=== PATIENT | male | born 1940 | race Caucasian/White ===

== ENCOUNTER 2017-06-09 18:44 | Inpatient (IN) | payer OTHER, MEDICARE ==
[~2017-06-09] VITALS: Ht 162.6 cm; Wt 53.5 kg
[~2017-06-09 18:44] MED LIST: DUONI INH; LEVO750T33 PO; NEBUMIS6 INH; PRED10PA PO
[2017-06-09 18:53] VITALS: BP 124/76; PULSE 102; RESP 36; TEMP 97.8; O2SAT 88
[2017-06-09 19:06] VITALS: BP 111/63; PULSE 88; RESP 26; O2SAT 94
[2017-06-09] MEDS ORDERED: IPRASOL INH (19:14)
--- NOTE | 2017-06-09 19:16 | PD ---
HPI Chief Complaint: Respiratory Symptoms Time Seen by Provider: 19:06 Travel History International Travel<30 days: No Contact w/Intl Traveler<30days: No Traveled to known affect area: No History of Present Illness HPI pt is 76 yr old male with history of COPD has home nebs not working to improve 3 days of worsening cough and congestion . he has tightness and cough and wheeze , denies CP pressure no vomit no diaphoresis , no signs of cardiac imvolvement , never had CHF , nor CAD by his report. neice is bedside, Pt is desaturating on room air to 83% Has noticeable cough and increased RR. His home treatments are not alleviating Resp distress he has not seen another MD for this illness exacerbations PFSH Past Medical History Arthritis: No Anxiety: Yes (loud noises from PTSD) Cancer: No Cardiovascular Problems: No COPD: Yes Diminished Hearing: No Endocrine: No Genitourinary: No Immune Disorder: No Musculoskeletal: No Neurologic: No Psychiatric: Yes Reproductive: No Respiratory: Yes Immunizations Current: Yes Pneumonia: Yes Past Surgical History Abdominal Surgery: No Cardiac Surgery: No Ear Surgery: No Endocrine Surgery: No Eye Surgery: No Genitourinary Surgery: No Gynecologic Surgery: No Oral Surgery: Yes Thoracic Surgery: No Social History Alcohol Use: Yes (OCCASSIONALLY) Tobacco Use: No Substance Use: No Allergies-Medications (Allergen,Severity, Reaction): Coded Allergies: meperidine (Unverified Allergy, Severe, 06/09/17) morphine (Unverified Allergy, Severe, 06/09/17) Reported Meds & Prescriptions Reported Meds & Active Scripts Active Reported Duoneb (Ipratropium-Albuterol Neb) 0.5-2.5 Mg/3 Ml Neb 1 Nebule INH Q6HR NEB Review of Systems HENT: No: Headaches, Sore Throat Cardiovascular: No: Chest Pain or Discomfort, Tachycardia Respiratory: Positive: Cough, Shortness of Breath, Wheezing Physical Exam Narrative GENERAL: no appraent resp distress but has obvious cough and increased RR SKIN: Warm and dry. HEAD: Atraumatic. Normocephalic. EYES: Pupils equal and round. No scleral icterus. No injection or drainage. ENT: No nasal bleeding or discharge. Mucous membranes pink and moist. NECK: Trachea midline. No JVD. CARDIOVASCULAR: Regular rhythm. RESPIRATORY: Diffuse wheeze in all cortes . moving air but diffuse decrease BS GASTROINTESTINAL: Abdomen soft, non-tender, nondistended. Hepatic and splenic margins not palpable. MUSCULOSKELETAL: Extremities without clubbing, cyanosis, or edema. No obvious deformities. NEUROLOGICAL: Awake and alert. No obvious cranial nerve deficits. Motor grossly within normal limits. Five out of 5 muscle strength in the arms and legs. Normal speech. PSYCHIATRIC: Appropriate mood and affect; insight and judgment normal. Data Data Last Documented VS Vital Signs Date Time Temp Pulse Resp B/P (MAP) Pulse Ox O2 Delivery O2 Flow Rate FiO2 06/09/17 19:06 88 26 111/63 (79) 94 Nasal Cannula 3.00 06/09/17 18:53 97.8 Orders Orders Electrocardiogram (06/09/17 19:10) Complete Blood Count With Diff (06/09/17 19:10) Comprehensive Metabolic Panel (06/09/17 19:10) Ckmb (Isoenzyme) Profile (06/09/17 19:10) Troponin I (06/09/17 19:10) Chest, Pa & Lat (06/09/17 19:10) Albuterol-Ipratropium Neb (Duoneb Neb) (06/09/17 19:15) Methylprednisolone So Succ Inj (Solumedr (06/09/17 19:30) Levofloxacin 750 Mg Premix Inj (Levaquin (06/09/17 19:30) Influenzae A/B Antigen (06/09/17 19:30) Methylprednisolone So Succ Inj (Solumedr (06/10/17 00:00) Budeson-Formot 160-4.5 Mcg Inh (Symbicor (06/10/17 09:00) Albuterol-Ipratropium Neb (Duoneb Neb) (06/10/17 08:00) Albuterol-Ipratropium Neb (Duoneb Neb) (06/09/17 21:30) Admit To Inpatient (06/09/17 ) Vital Signs (Adult) Q4H (06/09/17 21:28) Activity Oob Ad Gretel (06/09/17 21:28) Diet Regular Basic (06/10/17 Breakfast) Sodium Chloride 0.9% Flush (Ns Flush) (06/09/17 21:30) Sodium Chloride 0.9% Flush (Ns Flush) (06/10/17 09:00) Ondansetron Inj (Zofran Inj) (06/09/17 21:30) Comprehensive Metabolic Panel (06/10/17 06:00) Complete Blood Count With Diff (06/10/17 06:00) Enoxaparin Inj (Lovenox Inj) (06/10/17 09:00) Acetaminophen (Tylenol) (06/09/17 21:30) Acetamin-Hydrocod 325-5 Mg ([place] 5-325 (06/09/17 21:30) Acetamin-Hydrocod 325-10 Mg ([place] 10-32 (06/09/17 21:30) Docusate Sodium-Senna (Sachi-Colace) (06/10/17 09:00) Magnesium Hydroxide Liq (Milk Of Magnesi (06/09/17 21:30) Sennosides (Senokot) (06/09/17 21:30) Bisacodyl Supp (Dulcolax Supp) (06/09/17 21:30) Lactulose Liq (Lactulose Liq) (06/09/17 21:30) Inpatient Certification (06/09/17 ) Admit Order (Ed Use Only) (06/09/17 21:36) Arterial Blood Gas (Abg) (06/09/17 ) Labs Laboratory Tests Test 06/09/17 19:15 06/09/17 21:37 White Blood Count 16.8 TH/MM3 Red Blood Count 4.50 MIL/MM3 Hemoglobin 15.0 GM/DL Hematocrit 43.7 % Mean Corpuscular Volume 97.0 FL Mean Corpuscular Hemoglobin 33.3 PG Mean Corpuscular Hemoglobin Concent 34.4 % Red Cell Distribution Width 12.7 % Platelet Count 264 TH/MM3 Mean Platelet Volume 8.2 FL Neutrophils (%) (Auto) 79.9 % Lymphocytes (%) (Auto) 7.9 % Monocytes (%) (Auto) 11.7 % Eosinophils (%) (Auto) 0.3 % Basophils (%) (Auto) 0.2 % Neutrophils # (Auto) 13.4 TH/MM3 Lymphocytes # (Auto) 1.3 TH/MM3 Monocytes # (Auto) 2.0 TH/MM3 Eosinophils # (Auto) 0.1 TH/MM3 Basophils # (Auto) 0.0 TH/MM3 CBC Comment DIFF FINAL Differential Comment Blood Urea Nitrogen 16 MG/DL Creatinine 0.83 MG/DL Random Glucose 104 MG/DL Total Protein 8.2 GM/DL Albumin 3.4 GM/DL Calcium Level 9.4 MG/DL Alkaline Phosphatase 70 U/L Aspartate Amino Transf (AST/SGOT) 18 U/L Alanine Aminotransferase (ALT/SGPT) 17 U/L Total Bilirubin 0.8 MG/DL Sodium Level 136 MEQ/L Potassium Level 4.3 MEQ/L Chloride Level 99 MEQ/L Carbon Dioxide Level 29.0 MEQ/L Anion Gap 8 MEQ/L Estimat Glomerular Filtration Rate 91 ML/MIN Total Creatine Kinase 83 U/L Troponin I LESS THAN 0.02 NG/ML Blood Gas Puncture Site RT RADIAL Blood Gas Patient Temperature 98.6 Blood Gas HCO3 28 mmol/L Blood Gas Base Excess 3.3 mmol/L Blood Gas Oxygen Saturation 93 % Arterial Blood pH 7.41 Arterial Blood Partial Pressure CO2 45 mmHg Arterial Blood Partial Pressure O2 75 mmHG Arterial Blood Oxygen Content 19.2 Vol % Arterial Blood Carboxyhemoglobin 1.9 % Arterial Blood Methemoglobin 0.5 % Blood Gas Hemoglobin 14.7 G/DL Blood Gas Liter Flow 2 L/M MDM Medical Decision Making Medical Screen Exam Complete: Yes Emergency Medical Condition: Yes Medical Record Reviewed: Yes Differential Diagnosis COPD exacerbation vs CAD ischemic , PNA bronchitis viral Pneumothorax other Narrative Course COPD exacerbation with mild improvement after ED treatment needs inpt stay until the solumedrol kick in pt holding saturation now have Nebs and steroids and levaquin and admitted Diagnosis Primary Impression: COPD (chronic obstructive pulmonary disease) Qualified Codes: J44.9 - Chronic obstructive pulmonary disease, unspecified Additional Impression: Hypoxia Admitting Information Admitting Physician Requests: Observation Roberto Medina MD Jun 09, 2017 19:16
[2017-06-09] MEDS: RESP: ALBUTEROL 2.5 MG/IPRATROPIUM 0.5 MG NEB (SCH) INH (19:22)
[2017-06-09] MEDS ORDERED: LEVOFLOXACIN 750 MG PREMIX INJ 150 ML IV SCH (19:30)
[2017-06-09] MEDS ORDERED: methylPREDNISolone SOD SUCC 125 MG/2 ML VIAL IV PUSH ONE (19:30)
[2017-06-09 19:42] LABS: AUTOMATED NEUTROPHIL # 13.4 TH/MM3 (1.8-7.7); BASOPHIL % 0.2 % (0.0-2.0); EOSINOPHIL # 0.1 TH/MM3 (0-0.4); EOSINOPHIL % 0.3 % (0.0-4.0); HEMATOCRIT 43.7 % (39.0-51.0); LYMPH % 7.9 % (9.0-44.0); LYMPHOCYTE # 1.3 TH/MM3 (1.0-4.8); MEAN CORPUSCULAR HEMOGLOBIN 33.3 PG (27.0-34.0); MEAN CORPUSCULAR HGB CONC 34.4 % (32.0-36.0); MEAN PLATELET VOLUME 8.2 FL (7.0-11.0); MONO % 11.7 % (0.0-8.0); NEUT % 79.9 % (16.0-70.0); PLATELET COUNT 264 TH/MM3 (150-450); RED CELL DISTRIBUTION WIDTH 12.7 % (11.6-17.2); WHITE BLOOD COUNT 16.8 TH/MM3 (4.0-11.0)
[2017-06-09 19:53] LABS: ALBUMIN 3.4 GM/DL (3.4-5.0); ALT (GPT) 17 U/L (12-78); AST (GOT) 18 U/L (15-37); BLOOD UREA NITROGEN 16 MG/DL (7-18); CALCIUM 9.4 MG/DL (8.5-10.1); CHLORIDE 99 MEQ/L (98-107); CREATININE 0.83 MG/DL (0.60-1.30); GLOMERULAR FILTRATION RATE 91 ML/MIN (>89); GLUCOSE,RANDOM 104 MG/DL (74-106); SODIUM (NA) 136 MEQ/L (136-145)
[2017-06-09 19:57] LABS: ALKALINE PHOSPHATASE 70 U/L (45-117); TOTAL BILIRUBIN ADULT 0.8 MG/DL (0.2-1.0); TOTAL PROTEIN 8.2 GM/DL (6.4-8.2); TROPONIN I LESS THAN 0.02 NG/ML (0.02-0.05)
--- NOTE | 2017-06-09 20:09 | RADRPT ---
EXAM DATE/TIME: 06/09/2017 19:45 [place] COMPARISON: No previous studies available for comparison. INDICATIONS : Shortness of breath for 1 week MEDICAL HISTORY : None. SURGICAL HISTORY : None. ENCOUNTER: Initial ACUITY: 1 week PAIN SCORE: 0/10 LOCATION: Bilateral chest FINDINGS: PA and lateral views of the chest demonstrate the lungs to be symmetrically aerated without evidence of mass, infiltrate or effusion. Emphysema with hyperinflation. Peribronchial thickening present. The cardiomediastinal contours are unremarkable. Osseous structures are intact. CONCLUSION: 1. Mild hyperinflation. Peribronchial thickening. No focal consolidation. Underlying emphysema. Ivan Tucker MD on June 09, 2017 at 20:05 Board Certified Radiologist. This report was verified electronically.
[2017-06-09] MEDS ORDERED: ACETAMINOPHEN/HYDROcodone 325 MG/5 MG TAB PO PRN (21:30)
[2017-06-09] MEDS ORDERED: ACETAMINOPHEN/HYDROcodone 325 MG/10 MG TAB PO PRN (21:30)
[2017-06-09] MEDS ORDERED: ONDANSETRON HCL 4 MG/2 ML VIAL IVP PRN (21:30)
[2017-06-09] MEDS ORDERED: MAGNESIUM HYDROXIDE SUSP 30 ML CUP PO PRN (21:30)
[2017-06-09] MEDS ORDERED: SODIUM CHLORIDE 0.9% FLUSH 10 ML FLUSH IV FLUSH PRN (21:30)
[2017-06-09] MEDS ORDERED: LACTULOSE SYRUP 20 GM/30 ML CUP PO PRN (21:30)
[2017-06-09] MEDS ORDERED: ACETAMINOPHEN 325 MG TAB PO PRN (21:30)
[2017-06-09] MEDS ORDERED: BISACODYL 10 MG SUPP RECTAL PRN (21:30)
[2017-06-09] MEDS ORDERED: SENNOSIDES 8.6 MG TAB PO PRN (21:30)
--- NOTE | 2017-06-09 21:32 | HHI.HP ---
[facility] Primary Care Physician [place] Admission Diagnosis Diagnoses: (1) COPD (chronic obstructive pulmonary disease) Diagnosis: Principal (2) Hypoxia Diagnosis: Principal (3) Leukocytosis Diagnosis: Principal Travel History International Travel<30 Days: No Contact w/Intl Traveler <30 Da: No Traveled to Known Affected Are: No History of Present Illness This is a 76-year-old male with PMH of COPD who presents ER with complaints of cough and wheezing x3 days. Has been using home nebulizer w/ minimal improvement. Denies fever, chills or sick contacts. Reports SOB/wheezing severe, worse w/ exertion/movement, associated w/ non-productive cough. On arrival, BP 124/76, HR 102, O2 sat 88% on RA, Afebrile. WBC 16.8. Chemistry essentially unremarkable. Troponin negative. CXR with mild hyperinflation and peribronchial thickening. S/p Solu-Medrol and DuoNeb in ER w/ minimal improvement, still w/ persistent SOB/wheezing and significant dyspnea w/ speech. Review of Systems Except as stated in HPI: all other systems reviewed are Neg ROS: 14 point review of systems otherwise negative. Past Family Social History Past Medical History PMH: COPD Past Surgical History PAST SURGICAL HISTORY: Oral Surgery Allergies: Coded Allergies: meperidine (Unverified Allergy, Severe, 06/09/17) morphine (Unverified Allergy, Severe, 06/09/17) Family History PAST FAMILY HISTORY: Reviewed. No h/o DM or CAD Social History PAST SOCIAL HISTORY: Occasional alcohol. Negative for tobacco or drugs. Physical Exam Vital Signs Vital Signs Date Time Temp Pulse Resp B/P (MAP) Pulse Ox O2 Delivery O2 Flow Rate FiO2 06/09/17 19:06 88 26 111/63 (79) 94 Nasal Cannula 3.00 06/09/17 18:56 (92) 06/09/17 18:53 97.8 102 36 124/76 (92) 88 Room Air Physical Exam PE: GENERAL: Very pleasant elderly thin white male in no acute distress. Dyspnea with speech. Audible wheezing. HEENT: PERRLA, EOMI. No scleral icterus or conjunctival pallor. No lid lag or facial droop. CARDIOVASCULAR: Regular rate and rhythm. No obvious murmurs to auscultation. No chest tenderness to palpation. RESPIRATORY: No obvious rhonchi. Significant wheezing. Decreased air movement bilaterally. GASTROINTESTINAL: Abdomen soft, non-tender, nondistended. BS normal. MUSCULOSKELETAL: Extremities without clubbing, cyanosis, or edema. No obvious deformities. NEUROLOGICAL: Awake, alert and oriented x4. No focal neurologic deficits. Moving both upper and lower extremities spontaneously. Laboratory Laboratory Tests Test 06/09/17 19:15 White Blood Count 16.8 Red Blood Count 4.50 Hemoglobin 15.0 Hematocrit 43.7 Mean Corpuscular Volume 97.0 Mean Corpuscular Hemoglobin 33.3 Mean Corpuscular Hemoglobin Concent 34.4 Red Cell Distribution Width 12.7 Platelet Count 264 Mean Platelet Volume 8.2 Neutrophils (%) (Auto) 79.9 Lymphocytes (%) (Auto) 7.9 Monocytes (%) (Auto) 11.7 Eosinophils (%) (Auto) 0.3 Basophils (%) (Auto) 0.2 Neutrophils # (Auto) 13.4 Lymphocytes # (Auto) 1.3 Monocytes # (Auto) 2.0 Eosinophils # (Auto) 0.1 Basophils # (Auto) 0.0 CBC Comment DIFF FINAL Differential Comment Blood Urea Nitrogen 16 Creatinine 0.83 Random Glucose 104 Total Protein 8.2 Albumin 3.4 Calcium Level 9.4 Alkaline Phosphatase 70 Aspartate Amino Transf (AST/SGOT) 18 Alanine Aminotransferase (ALT/SGPT) 17 Total Bilirubin 0.8 Sodium Level 136 Potassium Level 4.3 Chloride Level 99 Carbon Dioxide Level 29.0 Anion Gap 8 Estimat Glomerular Filtration Rate 91 Total Creatine Kinase 83 Troponin I LESS THAN 0.02 Result Diagram: 06/09/17191406/09/171914 Caprini VTE Risk Assessment Caprini VTE Risk Assessment: No/Low Risk (score <= 1) Caprini Risk Assessment Model Point Value = 1 Point Value = 2 Point Value = 3 Point Value = 5 Age 41-60 Minor surgery BMI > 25 kg/m2 Swollen legs Varicose veins or History of unexplained or recurrent spontaneous Oral contraceptives or hormone replacement Sepsis (< 1 month) Serious lung disease, including pneumonia (< 1 month) Abnormal pulmonary function Acute myocardial infarction Congestive heart failure (< 1 month) History of inflammatory bowel disease Medical patient at bed rest Age 61-74 Arthroscopic surgery Major open surgery (> 45 min) Laparoscopic surgery (> 45 min) Malignancy Confined to bed (> 72 hours) Immobilizing plaster cast Central venous access Age >= 75 History of VTE Family history of VTE Factor V Leiden Prothrombin [id number] Lupus anticoagulant Anticardiolipin antibodies Elevated serum homocysteine Heparin-induced thrombocytopenia Other congenital or acquired thrombophilia Stroke (< 1 month) Elective arthroplasty Hip, pelvis, or leg fracture Acute spinal cord injury (< 1 month) Prophylaxis Regimen Total Risk Factor Score Risk Level Prophylaxis Regimen 0-1 Low Early ambulation 2 Moderate Order ONE of the following: *Sequential Compression Device (SCD) *Heparin 5000 units SQ BID 3-4 Higher Order ONE of the following medications: *Heparin 5000 units SQ TID *Enoxaparin/Lovenox 40 mg SQ daily (WT < 150 kg, CrCl > 30 mL/min) *Enoxaparin/Lovenox 30 mg SQ daily (WT < 150 kg, CrCl > 10-29 mL/min) *Enoxaparin/Lovenox 30 mg SQ BID (WT < 150 kg, CrCl > 30 mL/min) AND/OR *Sequential Compression Device (SCD) 5 or more Highest Order ONE of the following medications: *Heparin 5000 units SQ TID (Preferred with Epidurals) *Enoxaparin/Lovenox 40 mg SQ daily (WT < 150 kg, CrCl > 30 mL/min) *Enoxaparin/Lovenox 30 mg SQ daily (WT < 150 kg, CrCl > 10-29 mL/min) *Enoxaparin/Lovenox 30 mg SQ BID (WT < 150 kg, CrCl > 30 mL/min) AND *Sequential Compression Device (SCD) Assessment and Plan Problem List: (1) COPD (chronic obstructive pulmonary disease) ICD Code: J44.9 - Chronic obstructive pulmonary disease, unspecified Status: Acute (2) Hypoxia ICD Code: R09.02 - Hypoxemia (3) Leukocytosis ICD Code: D72.829 - Elevated white blood cell count, unspecified Assessment and Plan A/P: 1. COPD: Chronic Respiratory Failure w/ Acute Exacerbation. Severe. Significant SOB/wheezing and dyspnea w/ speech despite Solu-Medrol and DuoNeb. CXR w/ hyperinflation, images reviewed by me. Continue Solu-Medrol, DuoNeb, Symbicort, Mucinex. Check ABG to eval for CO2 retention and possible need for BIPAP. 2. Hypoxia: O2 sat 88% on RA, currently on 3L NC w/ O2 sat 94%. Monitor O2 closely, check ABG as above for need to supplement further. 3. Leukocytosis: WBC 16 w/ elevated neutrophil count, afebrile. In light of severe COPD will continue w/ Levaquin IV for empiric treatment of atypical PNA. Recheck labs in am. 4. DVT Prophylaxis: Lovenox sq 5. Social work for d/c planning as needed. 6. Case discussed w/ ER physician at length, labs/records/imaging reviewed by me. Physician Certification 2 Midnight Certification Type: Admission for Inpatient Services Order for Inpatient Services The services are ordered in accordance with Medicare regulations or non- Medicare payer requirements, as applicable. In the case of services not specified as inpatient-only, they are appropriately provided as inpatient services in accordance with the 2-midnight benchmark. Estimated LOS (days): 2 days is the estimated time the patient will need to remain in the hospital, assuming treatment plan goals are met and no additional complications. Post-Hospital Plan: Not yet determined Heena Bellamy MD Jun 09, 2017 21:32
[2017-06-09 22:00] VITALS: BP 107/63; PULSE 87; RESP 18; O2SAT 96
[2017-06-09 22:52] VITALS: BP 111/75; PULSE 78; RESP 18; O2SAT 96
[2017-06-09] MEDS: methylPREDNISolone SOD SUCC 40 MG/1 ML VIAL IV PUSH SCH (23:12)
[2017-06-09] MEDS: RESP: ALBUTEROL 2.5 MG/IPRATROPIUM 0.5 MG NEB (PRN) NEB (23:40)
[2017-06-09 23:43] VITALS: O2SAT 93
[2017-06-10] VITALS (9 sets, daily range): BP systolic 100–122; BP diastolic 58–70; PULSE 85–97; RESP 18; TEMP 97.4–97.8; O2SAT 92–94
[2017-06-10] MEDS: methylPREDNISolone SOD SUCC 40 MG/1 ML VIAL IV PUSH SCH ×3 (05:39→21:41)
[2017-06-10 06:05] LABS: AUTOMATED NEUTROPHIL # 10.2 TH/MM3 (1.8-7.7); HEMATOCRIT 42.1 % (39.0-51.0); HEMOGLOBIN 14.4 GM/DL (13.0-17.0); LYMPH % 4.5 % (9.0-44.0); LYMPHOCYTE # 0.5 TH/MM3 (1.0-4.8); MEAN CELL VOLUME 96.8 FL (80.0-100.0); MEAN CORPUSCULAR HEMOGLOBIN 33.1 PG (27.0-34.0); MEAN CORPUSCULAR HGB CONC 34.2 % (32.0-36.0); MEAN PLATELET VOLUME 8.2 FL (7.0-11.0); MONO % 1.9 % (0.0-8.0); MONOCYTE # 0.2 TH/MM3 (0-0.9); NEUT % 93.6 % (16.0-70.0); PLATELET COUNT 261 TH/MM3 (150-450); RED BLOOD COUNT 4.35 MIL/MM3 (4.50-5.90); RED CELL DISTRIBUTION WIDTH 12.8 % (11.6-17.2); WHITE BLOOD COUNT 10.9 TH/MM3 (4.0-11.0)
[2017-06-10 06:23] LABS: ALT (GPT) 20 U/L (12-78); AST (GOT) 17 U/L (15-37); BICARBONATE 31.3 MEQ/L (21.0-32.0); BLOOD UREA NITROGEN 22 MG/DL (7-18); CALCIUM 9.5 MG/DL (8.5-10.1); CHLORIDE 99 MEQ/L (98-107); CREATININE 0.84 MG/DL (0.60-1.30); GLOMERULAR FILTRATION RATE 89 ML/MIN (>89); GLUCOSE,RANDOM 195 MG/DL (74-106); SODIUM (NA) 137 MEQ/L (136-145)
[2017-06-10 06:27] LABS: ALKALINE PHOSPHATASE 72 U/L (45-117); TOTAL BILIRUBIN ADULT 0.5 MG/DL (0.2-1.0); TOTAL PROTEIN 7.6 GM/DL (6.4-8.2)
[2017-06-10] MEDS: RESP: ALBUTEROL 2.5 MG/IPRATROPIUM 0.5 MG NEB (SCH) NEB ×4 (07:41→19:13)
[2017-06-10] MEDS: DOCUSATE SODIUM 50 MG/SENNA 8.6 MG TAB PO SCH ×2 (09:41→21:41)
[2017-06-10] MEDS: SODIUM CHLORIDE 0.9% FLUSH 10 ML FLUSH IV FLUSH SCH ×2 (09:41→21:41)
[2017-06-10] MEDS: ENOXAPARIN SODIUM 40 MG/0.4 ML SYRINGE SQ SCH (09:41)
[2017-06-10] MEDS: RESP: ALBUTEROL 2.5 MG/IPRATROPIUM 0.5 MG NEB (PRN) NEB ×2 (09:50→23:57)
[2017-06-10] MEDS: BUDESONIDE-FORMOTEROL 160/4.5 MCG INHALER INH SCH ×2 (11:45→21:40)
--- NOTE | 2017-06-10 12:09 | HHI.PR ---
Subjective Remarks Follow-up COPD exacerbation respiratory failure 06/10/17-patient seen and examined, reports improvement of shortness of breath and denies any chest pain. Currently from the Objective Vitals Vital Signs Date Time Temp Pulse Resp B/P (MAP) Pulse Ox O2 Delivery O2 Flow Rate FiO2 06/10/17 08:00 97.5 91 18 118/58 (78) 94 06/10/17 07:42 93 Nasal Cannula 3.00 06/10/17 04:00 97.4 92 18 121/64 (83) 94 06/10/17 00:00 97.6 85 18 100/62 (75) 93 06/09/17 23:43 93 Nasal Cannula 2.00 06/09/17 22:52 06/09/17 22:52 78 18 111/75 (87) 96 Nasal Cannula 2.00 06/09/17 22:00 87 18 107/63 (78) 96 Nasal Cannula 2.00 06/09/17 19:06 88 26 111/63 (79) 94 Nasal Cannula 3.00 06/09/17 18:56 (92) 06/09/17 18:53 97.8 102 36 124/76 (92) 88 Room Air I/O 06/09/17 06/09/17 06/09/17 06/10/17 06/10/17 06/10/17 07:00 15:00 23:00 07:00 15:00 23:00 Intake Total 150 ml 360 ml Balance 150 ml 360 ml Intake Oral 360 ml IV Total 150 ml # Voids 0 Result Diagram: 06/10/1752606/10/17526 Imaging Last Impressions Chest X-Ray 06/09/171909 Signed Impressions: Service Date/Time: Friday, June 09, 2017 19:45 - CONCLUSION: 1. Mild hyperinflation. Peribronchial thickening. No focal consolidation. Underlying emphysema. Ivan Tucker MD Objective Remarks GENERAL: NAD SKIN: Warm and dry. HEAD: Normocephalic. EYES: No scleral icterus. No injection or drainage. NECK: Supple, trachea midline. No JVD or lymphadenopathy. CARDIOVASCULAR: Regular rate and rhythm without murmurs, gallops, or rubs. RESPIRATORY: Breath sounds decrease bilaterally. No accessory muscle use.+exp wheezings GASTROINTESTINAL: Abdomen soft, non-tender, nondistended. MUSCULOSKELETAL: No cyanosis, or edema. BACK: Nontender without obvious deformity. No CVA tenderness. A/P Problem List: (1) COPD (chronic obstructive pulmonary disease) ICD Code: J44.9 - Chronic obstructive pulmonary disease, unspecified Status: Acute (2) Hypoxia ICD Code: R09.02 - Hypoxemia (3) Leukocytosis ICD Code: D72.829 - Elevated white blood cell count, unspecified Assessment and Plan 76 yrs old man with 1. COPD: Chronic Respiratory Failure w/ Acute Exacerbation. CXR w/ hyperinflation. Decrease Solu-Medrol to 40mg IV Q8H,Continue DuoNeb, Symbicort, Levaquin and Mucinex.add Spiriva 2. Hypoxia: currently on 3L NC . Monitor O2 closely, 3. Leukocytosis: In light of severe COPD will continue w/ Levaquin IV for empiric treatment of atypical PNA. Recheck labs in am. 4. DVT Prophylaxis: Lovenox sq Josr De La Cruz MD Jun 10, 2017 12:09
--- NOTE | 2017-06-10 14:37 | EKG ---
Date Performed: 06/09/2017 Time Performed: 20:07:44 PTAGE: 76 years EKG: ATRIAL FLUTTER/TACHYCARDIA RIGHT BUNDLE BRANCH BLOCK LEFT POSTERIOR FASCICULAR BLOCK ABNORM AL ECG Since PREVIOUS TRACING , no significant change noted PREVIOUS TRACIN11/02/2015 14.39.58 DOCTOR: Ed Marmolejo Interpretating Date/Time 06/10/2017 14:36:33
[2017-06-10] MEDS: LEVOFLOXACIN 750 MG PREMIX INJ 150 ML IV SCH (23:45)
[2017-06-11] VITALS (8 sets, daily range): BP systolic 92–121; BP diastolic 57–70; PULSE 83–100; RESP 18–19; TEMP 97.2–98; O2SAT 92–98
[2017-06-11] MEDS: RESP: ALBUTEROL 2.5 MG/IPRATROPIUM 0.5 MG NEB (PRN) NEB (04:12)
[2017-06-11] MEDS: methylPREDNISolone SOD SUCC 40 MG/1 ML VIAL IV PUSH SCH ×3 (04:42→19:36)
[2017-06-11] MEDS: DOCUSATE SODIUM 50 MG/SENNA 8.6 MG TAB PO SCH ×2 (09:00→19:36)
[2017-06-11] MEDS: RESP: ALBUTEROL 2.5 MG/IPRATROPIUM 0.5 MG NEB (SCH) NEB ×4 (09:24→20:51)
--- NOTE | 2017-06-11 10:21 | HHI.PR ---
Subjective Remarks Follow-up COPD exacerbation respiratory failure 06/10/17-patient seen and examined, reports improvement of shortness of breath and denies any chest pain. Currently from the 06/11/17-patient seen and examined,still short of breath with exp wheezing. Afebrile and denies any chest pain Objective Vitals Vital Signs Date Time Temp Pulse Resp B/P (MAP) Pulse Ox O2 Delivery O2 Flow Rate FiO2 06/11/17 09:25 Nasal Cannula 3.00 06/11/17 08:00 98.0 91 18 114/59 (77) 94 06/11/17 04:24 Nasal Cannula 3.00 06/11/17 04:00 97.5 84 18 115/58 (77) 92 06/11/17 00:00 Nasal Cannula 3.00 06/11/17 00:00 97.5 84 19 92/65 (74) 92 06/10/17 23:59 93 Nasal Cannula 3.00 06/10/17 21:15 Nasal Cannula 3.00 06/10/17 20:00 97.8 97 18 122/67 (85) 92 06/10/17 16:00 Nasal Cannula 3.00 06/10/17 16:00 97.5 95 18 111/70 (84) 92 06/10/17 15:09 92 Nasal Cannula 3.00 06/10/17 12:00 Nasal Cannula 3.00 06/10/17 12:00 97.6 87 18 111/67 (82) 92 I/O 06/10/17 06/10/17 06/10/17 06/11/17 06/11/17 06/11/17 07:00 15:00 23:00 07:00 15:00 23:00 Intake Total 360 ml 480 ml 430 ml Output Total 800 ml 300 ml Balance 360 ml -320 ml 130 ml Intake Oral 360 ml 480 ml 280 ml IV Total 150 ml Output Urine Total 800 ml 300 ml # Voids 0 Result Diagram: 06/10/1752606/10/17526 Imaging Last Impressions Chest X-Ray 06/09/171909 Signed Impressions: Service Date/Time: Friday, June 09, 2017 19:45 - CONCLUSION: 1. Mild hyperinflation. Peribronchial thickening. No focal consolidation. Underlying emphysema. Ivan Tucker MD Objective Remarks GENERAL: NAD SKIN: Warm and dry. HEAD: Normocephalic. EYES: No scleral icterus. No injection or drainage. NECK: Supple, trachea midline. No JVD or lymphadenopathy. CARDIOVASCULAR: Regular rate and rhythm without murmurs, gallops, or rubs. RESPIRATORY: Breath sounds decrease bilaterally. No accessory muscle use.+exp wheezings GASTROINTESTINAL: Abdomen soft, non-tender, nondistended. MUSCULOSKELETAL: No cyanosis, or edema. BACK: Nontender without obvious deformity. No CVA tenderness. A/P Problem List: (1) COPD (chronic obstructive pulmonary disease) ICD Code: J44.9 - Chronic obstructive pulmonary disease, unspecified Status: Acute (2) Hypoxia ICD Code: R09.02 - Hypoxemia (3) Leukocytosis ICD Code: D72.829 - Elevated white blood cell count, unspecified Assessment and Plan 76 yrs old man with 1. COPD: Chronic Respiratory Failure w/ Acute Exacerbation. CXR w/ hyperinflation. Continue Solu-Medrol 40mg IV Q8H, DuoNeb, Symbicort, Levaquin and Mucinex as well as Spiriva Maintain oxygen saturation above 92% Add Acapella, IS 2. Hypoxia: currently on 3L NC . Monitor O2 closely, 3. Leukocytosis: Resolved In light of severe COPD will continue w/ Levaquin IV for empiric treatment of atypical PNA. 4. DVT Prophylaxis: Lovenox sq Josr De La Cruz MD Jun 11, 2017 10:21
[2017-06-11] MEDS: ENOXAPARIN SODIUM 40 MG/0.4 ML SYRINGE SQ SCH (10:52)
[2017-06-11] MEDS: TIOTROPIUM BROMIDE 18 MCG INH INH SCH (10:52)
[2017-06-11] MEDS: BUDESONIDE-FORMOTEROL 160/4.5 MCG INHALER INH SCH ×2 (10:53→19:39)
[2017-06-11] MEDS: SODIUM CHLORIDE 0.9% FLUSH 10 ML FLUSH IV FLUSH SCH ×2 (12:40→19:41)
[2017-06-11] MEDS: LEVOFLOXACIN 750 MG PREMIX INJ 150 ML IV SCH (23:18)
[2017-06-12] MEDS: RESP: ALBUTEROL 2.5 MG/IPRATROPIUM 0.5 MG NEB (PRN) NEB ×2 (00:05→03:56)
[2017-06-12 04:00] VITALS: BP 117/59; PULSE 80; RESP 20; TEMP 97.4; O2SAT 93
[2017-06-12] MEDS: methylPREDNISolone SOD SUCC 40 MG/1 ML VIAL IV PUSH SCH ×3 (04:11→20:17)
[2017-06-12 08:12] VITALS: BP 113/64; PULSE 79; RESP 18; TEMP 97.3; O2SAT 96
[2017-06-12] MEDS: BUDESONIDE-FORMOTEROL 160/4.5 MCG INHALER INH SCH ×2 (09:00→20:19)
[2017-06-12 09:11] VITALS: O2SAT 93
[2017-06-12] MEDS: RESP: ALBUTEROL 2.5 MG/IPRATROPIUM 0.5 MG NEB (SCH) NEB ×4 (09:11→20:18)
--- NOTE | 2017-06-12 09:42 | HHI.PR ---
Subjective Remarks Follow-up COPD exacerbation respiratory failure 06/10/17-patient seen and examined, reports improvement of shortness of breath and denies any chest pain. Currently from the 06/11/17-patient seen and examined,still short of breath with exp wheezing. Afebrile and denies any chest pain 06/12/17-patient seen and examined, improving shortness of breath and denies any chest pain. Objective Vitals Vital Signs Date Time Temp Pulse Resp B/P (MAP) Pulse Ox O2 Delivery O2 Flow Rate FiO2 06/12/17 08:12 97.3 79 18 113/64 (80) 96 06/12/17 04:00 97.4 80 20 117/59 (78) 93 06/12/17 04:00 Nasal Cannula 3.00 06/11/17 23:14 97.6 84 18 100/62 (75) 98 06/11/17 20:53 96 Nasal Cannula 3.00 06/11/17 20:00 Nasal Cannula 3.00 06/11/17 19:33 97.7 88 18 111/70 (84) 96 06/11/17 16:00 97.2 83 18 111/61 (78) 95 06/11/17 16:00 Nasal Cannula 3.00 06/11/17 12:00 Nasal Cannula 3.00 06/11/17 12:00 97.4 100 18 121/57 (78) 94 I/O 06/11/17 06/11/17 06/11/17 06/12/17 06/12/17 06/12/17 07:00 15:00 23:00 07:00 15:00 23:00 Intake Total 430 ml 480 ml 300 ml Output Total 300 ml 800 ml 850 ml Balance 130 ml -320 ml -550 ml Intake Oral 280 ml 480 ml 200 ml IV Total 150 ml 100 ml Output Urine Total 300 ml 800 ml 850 ml # Bowel Movements 0 Result Diagram: 06/10/1752606/10/17526 Imaging Last Impressions Chest X-Ray 06/09/171909 Signed Impressions: Service Date/Time: Friday, June 09, 2017 19:45 - CONCLUSION: 1. Mild hyperinflation. Peribronchial thickening. No focal consolidation. Underlying emphysema. Ivan Tucker MD Objective Remarks GENERAL: NAD SKIN: Warm and dry. HEAD: Normocephalic. EYES: No scleral icterus. No injection or drainage. NECK: Supple, trachea midline. No JVD or lymphadenopathy. CARDIOVASCULAR: Regular rate and rhythm without murmurs, gallops, or rubs. RESPIRATORY: Breath sounds decrease bilaterally. No accessory muscle use.+exp wheezings GASTROINTESTINAL: Abdomen soft, non-tender, nondistended. MUSCULOSKELETAL: No cyanosis, or edema. BACK: Nontender without obvious deformity. No CVA tenderness. Procedures none A/P Problem List: (1) COPD (chronic obstructive pulmonary disease) ICD Code: J44.9 - Chronic obstructive pulmonary disease, unspecified Status: Acute (2) Hypoxia ICD Code: R09.02 - Hypoxemia (3) Leukocytosis ICD Code: D72.829 - Elevated white blood cell count, unspecified Assessment and Plan 76 yrs old man with 1. COPD: Chronic Respiratory Failure w/ Acute Exacerbation. CXR w/ hyperinflation. Continue Solu-Medrol 40mg IV Q8H, DuoNeb, Symbicort, Levaquin and Mucinex as well as Spiriva Maintain oxygen saturation above 92% Continue Acapella, IS 2. Hypoxia: currently on 3L NC . Monitor O2 closely, 3. Leukocytosis: Resolved In light of severe COPD will continue w/ Levaquin IV for empiric treatment of atypical PNA. 4. DVT Prophylaxis: Lovenox sq Josr De La Cruz MD Jun 12, 2017 09:42
[2017-06-12] MEDS: DOCUSATE SODIUM 50 MG/SENNA 8.6 MG TAB PO SCH ×2 (09:58→20:18)
[2017-06-12] MEDS: ENOXAPARIN SODIUM 40 MG/0.4 ML SYRINGE SQ SCH (09:59)
[2017-06-12] MEDS: TIOTROPIUM BROMIDE 18 MCG INH INH SCH (10:03)
[2017-06-12] MEDS: SODIUM CHLORIDE 0.9% FLUSH 10 ML FLUSH IV FLUSH SCH ×2 (10:04→20:17)
[2017-06-12 12:12] VITALS: BP 120/59; PULSE 87; RESP 18; TEMP 97.6; O2SAT 95
[2017-06-12 16:23] VITALS: BP 120/58; PULSE 87; RESP 18; TEMP 97.8; O2SAT 96
[2017-06-12 20:14] VITALS: BP 101/73; PULSE 89; RESP 21; TEMP 98; O2SAT 94
[2017-06-12] MEDS: LEVOFLOXACIN 750 MG PREMIX INJ 150 ML IV SCH (23:33)
[2017-06-13] VITALS: BP 130/61; PULSE 77; RESP 20; TEMP 97.6; O2SAT 95
[2017-06-13 04:00] VITALS: BP 113/76; PULSE 75; RESP 20; TEMP 97.4; O2SAT 95
[2017-06-13] MEDS: methylPREDNISolone SOD SUCC 40 MG/1 ML VIAL IV PUSH SCH (04:12)
[2017-06-13 07:22] LABS: BASOPHIL % 0.1 % (0.0-2.0); HEMATOCRIT 38.7 % (39.0-51.0); HEMOGLOBIN 13.3 GM/DL (13.0-17.0); LYMPH % 7.4 % (9.0-44.0); LYMPHOCYTE # 0.8 TH/MM3 (1.0-4.8); MEAN CELL VOLUME 96.4 FL (80.0-100.0); MEAN CORPUSCULAR HEMOGLOBIN 33.2 PG (27.0-34.0); MEAN CORPUSCULAR HGB CONC 34.5 % (32.0-36.0); MEAN PLATELET VOLUME 7.6 FL (7.0-11.0); MONO % 5.9 % (0.0-8.0); MONOCYTE # 0.6 TH/MM3 (0-0.9); NEUT % 86.6 % (16.0-70.0); PLATELET COUNT 343 TH/MM3 (150-450); RED BLOOD COUNT 4.01 MIL/MM3 (4.50-5.90); RED CELL DISTRIBUTION WIDTH 12.9 % (11.6-17.2); WHITE BLOOD COUNT 10.4 TH/MM3 (4.0-11.0)
[2017-06-13 07:40] VITALS: BP 117/65; PULSE 76; RESP 18; TEMP 97.7; O2SAT 95
[2017-06-13 07:45] LABS: BICARBONATE 30.6 MEQ/L (21.0-32.0); CREATININE 0.56 MG/DL (0.60-1.30)
[2017-06-13 07:57] VITALS: O2SAT 93
[2017-06-13] MEDS: RESP: ALBUTEROL 2.5 MG/IPRATROPIUM 0.5 MG NEB (SCH) NEB ×2 (07:57→11:50)
[2017-06-13] MEDS: SODIUM CHLORIDE 0.9% FLUSH 10 ML FLUSH IV FLUSH SCH (08:37)
[2017-06-13] MEDS: DOCUSATE SODIUM 50 MG/SENNA 8.6 MG TAB PO SCH (08:37)
[2017-06-13] MEDS: BUDESONIDE-FORMOTEROL 160/4.5 MCG INHALER INH SCH (08:37)
[2017-06-13] MEDS: TIOTROPIUM BROMIDE 18 MCG INH INH SCH (08:37)
[2017-06-13] MEDS: ENOXAPARIN SODIUM 40 MG/0.4 ML SYRINGE SQ SCH (08:37)
[2017-06-13 09:09] LABS: BANDS 7 % (0-6); LYMPHOCYTES 9 % (9-44); MONOCYTES 5 % (0-8); NEUTROPHIL # MANUAL DIFF 8.9 TH/MM3 (1.8-7.7); POLYS (SEG NEUTROPHILS) 79 % (16-70)
[2017-06-13] MEDS ORDERED: IPRA17I INH (10:13)
[2017-06-13] MEDS ORDERED: LEVA750T9 PO (10:13)
[2017-06-13] MEDS ORDERED: SPIRCAP INH (10:13)
[2017-06-13] MEDS ORDERED: PRED20 PO (10:13)
[2017-06-13] MEDS ORDERED: Budeson-Formot 160-4.5 Mcg Inh INH (10:13)
[2017-06-13] MEDS ORDERED: VENTAER INH (10:13)
[2017-06-13] MEDS ORDERED: OXYGENDME NAS.CANULA (10:14)
--- NOTE | 2017-06-13 10:16 | HHI.PR ---
Subjective Remarks Follow-up COPD exacerbation respiratory failure 06/10/17-patient seen and examined, reports improvement of shortness of breath and denies any chest pain. Currently from the 06/11/17-patient seen and examined,still short of breath with exp wheezing. Afebrile and denies any chest pain 06/12/17-patient seen and examined, improving shortness of breath and denies any chest pain. 06/13/17-patient seen and examined, reports significant improvement or shortness of breath and states he is ready for discharge home now. Objective Vitals Vital Signs Date Time Temp Pulse Resp B/P (MAP) Pulse Ox O2 Delivery O2 Flow Rate FiO2 06/13/17 08:30 Nasal Cannula 2.00 06/13/17 07:57 93 21 06/13/17 07:40 97.7 76 18 117/65 (82) 95 06/13/17 04:00 97.4 75 20 113/76 (88) 95 06/13/17 04:00 Nasal Cannula 2.00 06/13/17 00:00 Nasal Cannula 3.00 06/13/17 00:00 97.6 77 20 130/61 (84) 95 06/12/17 20:14 Nasal Cannula 3.00 06/12/17 20:14 98.0 89 21 101/73 (82) 94 06/12/17 16:23 97.8 87 18 120/58 (78) 96 06/12/17 12:12 97.6 87 18 120/59 (79) 95 I/O 06/12/17 06/12/17 06/12/17 06/13/17 06/13/17 06/13/17 06:59 14:59 22:59 06:59 14:59 22:59 Intake Total 300 ml 600 ml 870 ml Output Total 850 ml 600 ml 800 ml Balance -550 ml 0 ml 70 ml Intake Oral 200 ml 600 ml 720 ml IV Total 100 ml 150 ml Output Urine Total 850 ml 600 ml 800 ml # Bowel Movements 0 0 0 Result Diagram: 06/13/1703 06/13/17 0703 Imaging Last Impressions Chest X-Ray 06/09/17 1910 Signed Impressions: Service Date/Time: Friday, June 09, 2017 19:45 - CONCLUSION: 1. Mild hyperinflation. Peribronchial thickening. No focal consolidation. Underlying emphysema. Ivan Tucker MD Objective Remarks GENERAL: NAD SKIN: Warm and dry. HEAD: Normocephalic. EYES: No scleral icterus. No injection or drainage. NECK: Supple, trachea midline. No JVD or lymphadenopathy. CARDIOVASCULAR: Regular rate and rhythm without murmurs, gallops, or rubs. RESPIRATORY: Breath sounds decrease bilaterally. No accessory muscle use.+exp wheezings GASTROINTESTINAL: Abdomen soft, non-tender, nondistended. MUSCULOSKELETAL: No cyanosis, or edema. BACK: Nontender without obvious deformity. No CVA tenderness. Procedures none A/P Problem List: (1) COPD (chronic obstructive pulmonary disease) ICD Code: J44.9 - Chronic obstructive pulmonary disease, unspecified Status: Acute (2) Hypoxia ICD Code: R09.02 - Hypoxemia (3) Leukocytosis ICD Code: D72.829 - Elevated white blood cell count, unspecified Assessment and Plan 76 yrs old man with 1. COPD: Chronic Respiratory Failure w/ Acute Exacerbation. CXR w/ hyperinflation. Continue Solu-Medrol 40mg IV Q8H however will switch to by mouth prednisone on discharge, DuoNeb, Symbicort, Levaquin and Mucinex as well as Spiriva Maintain oxygen saturation above 92% Continue Acapella, IS 2. Hypoxia: currently on 3L NC . Monitor O2 closely, 3. Leukocytosis: Resolved In light of severe COPD will continue w/ Levaquin IV for empiric treatment of atypical PNA. 4. DVT Prophylaxis: Lovenox sq Problem Qualifiers (1) COPD (chronic obstructive pulmonary disease): Qualified Codes: J44.1 - Chronic obstructive pulmonary disease with (acute) exacerbation Josr De La Cruz MD Jun 13, 2017 10:16
--- NOTE | 2017-06-13 10:19 | HHI.DS ---
Discharge Summary Admission Date Jun 09, 2017 at 21:38 Discharge Date: Jun 13, 2017 Admitting Diagnosis (1) COPD (chronic obstructive pulmonary disease) ICD Code: J44.9 - Chronic obstructive pulmonary disease, unspecified Status: Acute (2) Hypoxia ICD Code: R09.02 - Hypoxemia (3) Leukocytosis ICD Code: D72.829 - Elevated white blood cell count, unspecified Procedures none Brief History - From Admission This is a 76-year-old male with PMH of COPD who presents ER with complaints of cough and wheezing x3 days. Has been using home nebulizer w/ minimal improvement. Denies fever, chills or sick contacts. Reports SOB/wheezing severe, worse w/ exertion/movement, associated w/ non-productive cough. On arrival, BP 124/76, HR 102, O2 sat 88% on RA, Afebrile. WBC 16.8. Chemistry essentially unremarkable. Troponin negative. CXR with mild hyperinflation and peribronchial thickening. S/p Solu-Medrol and DuoNeb in ER w/ minimal improvement, still w/ persistent SOB/wheezing and significant dyspnea w/ speech. CBC/BMP: 06/13/17 0703 06/13/17 0703 Significant Findings Laboratory Tests Test 06/13/17 07:03 Red Blood Count 4.01 MIL/MM3 (4.50-5.90) Hematocrit 38.7 % (39.0-51.0) Neutrophils (%) (Auto) 86.6 % (16.0-70.0) Lymphocytes (%) (Auto) 7.4 % (9.0-44.0) Neutrophils # (Auto) 9.0 TH/MM3 (1.8-7.7) Lymphocytes # (Auto) 0.8 TH/MM3 (1.0-4.8) Neutrophils % (Manual) 79 % (16-70) Band Neutrophils % 7 % (0-6) Neutrophils # (Manual) 8.9 TH/MM3 (1.8-7.7) Blood Urea Nitrogen 20 MG/DL (7-18) Creatinine 0.56 MG/DL (0.60-1.30) Random Glucose 121 MG/DL (74-106) Imaging Last Impressions Chest X-Ray 06/09/17 1910 Signed Impressions: Service Date/Time: Friday, June 09, 2017 19:45 - CONCLUSION: 1. Mild hyperinflation. Peribronchial thickening. No focal consolidation. Underlying emphysema. Ivan Tucker MD PE at Discharge GENERAL: NAD SKIN: Warm and dry. HEAD: Normocephalic. EYES: No scleral icterus. No injection or drainage. NECK: Supple, trachea midline. No JVD or lymphadenopathy. CARDIOVASCULAR: Regular rate and rhythm without murmurs, gallops, or rubs. RESPIRATORY: Breath sounds decrease bilaterally. No accessory muscle use.+exp wheezings GASTROINTESTINAL: Abdomen soft, non-tender, nondistended. MUSCULOSKELETAL: No cyanosis, or edema. BACK: Nontender without obvious deformity. No CVA tenderness. Hospital Course Patient was admitted secondary to COPD exacerbation with hypoxia for which she was started on IV Solu-Medrol, long-acting beta agonist along with short-acting , antibiotics and his oxygen saturation was maintained above 92% and. His condition improved prior to discharge and vitals remained stable. DVT prophylaxis were provided. Patient will be discharged home on prednisone taper as well as by mouth antibiotics along with long-acting beta agonist Pt Condition on Discharge: Good Discharge Disposition: Discharge Home Discharge Time: <= 30 minutes Discharge Instructions DIET: Follow Instructions for: Heart Healthy Diet Activities you can perform: Regular-No Restrictions Follow up Referrals: PCP Follow-up - 1 Week New Medications: Albuterol 18 GM Inh (Ventolin Hfa 18 GM Inh) 90 Mcg/Act Aer 2 PUFF INH Q4-6H PRN for SHORTNESS OF BREATH, #1 INHALER 3 Refills Ipratropium HFA 12.9 GM Inh (Atrovent HFA 12.9 GM Inh) 17 Mcg/Actuation Aer 2 PUFF INH Q6HR PRN for SHORTNESS OF BREATH, #1 INHALER 3 Refills Levofloxacin (Levaquin) 750 Mg Tablet 750 MG PO DAILY for Infection, #5 TAB 0 Refills Oxygen (O2) (Oxygen (O2)) Device LITER NICKO.CANULA CONTINUOUS for Prevent Hypoxemia, #2 Oxygen Concentrator Portable Gaseous 2 L/min via Nasal Canula Continuous For 99 months Prednisone (Prednisone) 20 Mg Tab 20 MG PO DIRECTED for Inflammation, #11 TAB 0 Refills 40 MG twice a day x 3 days, then 20 MG daily x 3 days, then 10 MG daily x 3 days Tiotropium Inh (Spiriva Handihaler) 18 Mcg Cap 18 MCG INH DAILY for Breathing Treatment, #30 CAP 11 Refills 1 capsule = 18 mcg [Budeson-Formot 160-4.5 Mcg Inh] () 60 PUFF AERO 2 PUFF INH Q12HR for Breathing Treatment, #1 11 Refills Discontinued Medications: Ipratropium-Albuterol Neb (Duoneb) 0.5-2.5 Mg/3 Ml Neb 1 NEBULE INH Q6HR NEB for Breathing Treatment, #120 NEBULE 0 Refills Josr De La Cruz MD Jun 13, 2017 10:18
[2017-06-13 11:38] VITALS: BP 110/73; PULSE 83; RESP 18; TEMP 98; O2SAT 93
== END 2017-06-13 12:30 | disposition home or self-care (01) | DRG 190 ==
LOC: NEPE 18:44 → NEDA 21:38 → N04A 22:53
PROVIDERS: ADMIT Hospitalist; ATTEND Hospitalist
DX: J44.1 Chronic obstructive pulmonary disease with (acute) exacerbation (principal); J18.9 Pneumonia, unspecified organism; J96.11 Chronic respiratory failure with hypoxia; J44.0 Chronic obstructive pulmonary disease with (acute) lower respiratory infection
CPT/HCPCS: 36600; 71046; 80048; 80053; 82550; 82805; 84484; 85007; 85025; 85027; 87804; 93005; 94150; 94618; 94640; 94664; 94667; 94668; 96365; 96375; J1650; J1956; J2405; J2920; J2930

== ENCOUNTER 2017-07-31 11:48 | Emergency (ER) | payer MEDICARE, OTHER ==
[~2017-07-31] VITALS: Ht 163.8 cm; Wt 50.0 kg
[~2017-07-31 11:48] MED LIST changes: +Budeson-Formot 160-4.5 Mcg Inh INH; -DUONI INH; +IPRA17I INH; +LEVA750T9 PO; -LEVO750T33 PO; -NEBUMIS6 INH; +OXYGENDME NAS.CANULA; -PRED10PA PO; +PRED20 PO; +SPIRCAP INH; +VENTAER INH
[2017-07-31 11:52] VITALS: BP 145/70; PULSE 88; RESP 24; TEMP 97.9; O2SAT 91
--- NOTE | 2017-07-31 12:17 | RADRPT ---
EXAM DATE/TIME: 07/31/2017 12:06 [facility] COMPARISON: CHEST PA & LAT, June 09, 2017, 19:45. INDICATIONS : Shortness of breath and congestion. MEDICAL HISTORY : Chronic obstructive pulmonary disease. SURGICAL HISTORY : None. ENCOUNTER: Initial ACUITY: 3 days PAIN SCORE: 0/10 LOCATION: Bilateral chest FINDINGS: PA and lateral views of the chest demonstrate the lungs to be symmetrically aerated without evidence of mass, infiltrate or effusion. The cardiomediastinal contours are unremarkable. Osseous structure s are intact. CONCLUSION: No acute disease. Quentin Torres MD FACR on July 31, 2017 at 12:14 Board Certified Radiologist. This report was verified electronically.
--- NOTE | 2017-07-31 12:18 | PD ---
HPI Chief Complaint: Respiratory Symptoms Time Seen by Provider: 12:05 Travel History International Travel<30 days: No Contact w/Intl Traveler<30days: No Traveled to known affect area: No History of Present Illness HPI 76-year-old male with history of COPD presents for evaluation of wheezing, dyspnea, cough. Symptoms started 9 days ago. The cough is primarily dry, occasionally productive sputum. He reports that he has been using his albuterol nebulizer every 4 hours. Denies chest pain, nausea, vomiting, diaphoresis, abdominal pain, lower extremity edema. Denies fevers or chills. He has no other complaints at this time. PFSH Past Medical History Arthritis: No Anxiety: Yes (loud noises from PTSD) Depression: No Cancer: No Cardiovascular Problems: No COPD: Yes Diminished Hearing: No Endocrine: No Genitourinary: No Immune Disorder: No Musculoskeletal: No Neurologic: No Psychiatric: Yes Reproductive: No Respiratory: Yes Immunizations Current: Yes Pneumonia: Yes Past Surgical History Abdominal Surgery: No Cardiac Surgery: No Ear Surgery: No Endocrine Surgery: No Eye Surgery: No Genitourinary Surgery: No Gynecologic Surgery: No Oral Surgery: Yes Thoracic Surgery: No Social History Alcohol Use: Yes (OCCASSIONALLY) Tobacco Use: No Substance Use: No Allergies-Medications (Allergen,Severity, Reaction): Coded Allergies: meperidine (Unverified Allergy, Severe, 06/09/17) morphine (Unverified Allergy, Severe, 06/09/17) Reported Meds & Prescriptions Reported Meds & Active Scripts Active Prednisone 20 Mg Tab 20 Mg PO BID 5 Days Levaquin (Levofloxacin) 500 Mg Tablet 500 Mg PO DAILY 9 Days Oxygen (O2) Device Liter NICKO.CANULA CONTINUOUS Oxygen Concentrator Portable Gaseous 2 L/min via Nasal Canula Continuous For 99 months Levaquin (Levofloxacin) 750 Mg Tablet 750 Mg PO DAILY Ventolin Hfa 18 GM Inh (Albuterol Sulfate) 90 Mcg/Act Aer 2 Puff INH Q4-6H PRN Atrovent HFA 12.9 GM Inh (Ipratropium [place]) 17 Mcg/Actuation Aer 2 Puff INH Q6HR PRN Prednisone 20 Mg Tab 20 Mg PO DIRECTED 40 MG twice a day x 3 days, then 20 MG daily x 3 days, then 10 MG daily x 3 days [Budeson-Formot 160-4.5 Mcg Inh] 60 PUFF Aero 2 Puff INH Q12HR Spiriva Handihaler (Tiotropium Inh) 18 Mcg Cap 18 Mcg INH DAILY 1 capsule = 18 mcg Review of Systems Except as stated in HPI: all other systems reviewed are Neg Physical Exam Narrative GENERAL: Well-developed well-nourished male in no acute distress answering questions appropriately. SKIN: Warm and dry. HEAD: Atraumatic. Normocephalic. EYES: Pupils equal and round. No scleral icterus. No injection or drainage. ENT: No nasal bleeding or discharge. Mucous membranes pink and moist. NECK: Trachea midline. No JVD. CARDIOVASCULAR: Regular rate and rhythm. No murmur appreciated. RESPIRATORY: No accessory muscle use. Diffuse inspiratory and expiratory wheezing bilaterally. No crackles. Able to speak in complete clear sentences. Oxygen saturation is 94-95% on room air while conversing. GASTROINTESTINAL: Abdomen soft, non-tender, nondistended. Hepatic and splenic margins not palpable. MUSCULOSKELETAL: No obvious deformities. No clubbing. No cyanosis. No edema. NEUROLOGICAL: Awake and alert. No obvious cranial nerve deficits. Motor grossly within normal limits. Normal speech. Data Data Last Documented VS Vital Signs Date Time Temp Pulse Resp B/P (MAP) Pulse Ox O2 Delivery O2 Flow Rate FiO2 07/31/17 11:52 97.9 88 24 145/70 (95) 91 Orders Orders Complete Blood Count With Diff (07/31/17 11:55) Basic Metabolic Panel (Bmp) (07/31/17 11:55) B-Type Natriuretic Peptide (07/31/17 11:55) Act Partial Throm Time (Ptt) (07/31/17 11:55) Prothrombin Time / Inr (Pt) (07/31/17 11:55) Magnesium (Mg) (07/31/17 11:55) Electrocardiogram (07/31/17 11:55) Chest, Pa & Lat (07/31/17 11:55) Albuterol-Ipratropium Neb (Duoneb Neb) (07/31/17 12:30) Methylprednisolone So Succ Inj (Solumedr (07/31/17 12:30) Levofloxacin 500 Mg Premix Inj (Levaquin (07/31/17 14:00) Ed Discharge Order (07/31/17 13:58) Labs Laboratory Tests Test 07/31/17 12:30 White Blood Count 8.5 TH/MM3 Red Blood Count 4.55 MIL/MM3 Hemoglobin 14.7 GM/DL Hematocrit 42.3 % Mean Corpuscular Volume 93.0 FL Mean Corpuscular Hemoglobin 32.3 PG Mean Corpuscular Hemoglobin Concent 34.7 % Red Cell Distribution Width 13.3 % Platelet Count 261 TH/MM3 Mean Platelet Volume 7.6 FL Neutrophils (%) (Auto) 61.3 % Lymphocytes (%) (Auto) 27.7 % Monocytes (%) (Auto) 7.3 % Eosinophils (%) (Auto) 3.1 % Basophils (%) (Auto) 0.6 % Neutrophils # (Auto) 5.2 TH/MM3 Lymphocytes # (Auto) 2.3 TH/MM3 Monocytes # (Auto) 0.6 TH/MM3 Eosinophils # (Auto) 0.3 TH/MM3 Basophils # (Auto) 0.1 TH/MM3 CBC Comment DIFF FINAL Differential Comment Prothrombin Time 10.2 SEC Prothromb Time International Ratio 1.0 RATIO Activated Partial Thromboplast Time 28.0 SEC Blood Urea Nitrogen 12 MG/DL Creatinine 0.66 MG/DL Random Glucose 81 MG/DL Calcium Level 9.0 MG/DL Magnesium Level 2.1 MG/DL Sodium Level 139 MEQ/L Potassium Level 4.5 MEQ/L Chloride Level 102 MEQ/L Carbon Dioxide Level 30.7 MEQ/L Anion Gap 6 MEQ/L Estimat Glomerular Filtration Rate 118 ML/MIN B-Type Natriuretic Peptide 20 PG/ML MDM Medical Decision Making Medical Screen Exam Complete: Yes Emergency Medical Condition: Yes Medical Record Reviewed: Yes Differential Diagnosis COPD exacerbation, pneumothorax, bronchitis, pneumonia, doubt pulmonary embolism , CHF, acute coronary syndrome Narrative Course The patient was placed on ECG monitoring pulse oximetry. A 12-lead EKG was obtained. Lab work, chest x-ray ordered. He will be given duo nebs, Solu- Medrol. The patient feels improvement after the administration of the above. His lab work imaging studies are unremarkable. At this point in time the plan is to treat him as an outpatient for COPD exacerbation with prednisone, Levaquin, first dose provided here. Discussed signs and symptoms that would warrant returning to the emergency room. He is stable for discharge. Diagnosis Primary Impression: COPD exacerbation Additional Instructions: Medication as prescribed. Use at home albuterol nebulizer medication as needed. Follow-up with primary care physician and return for any acutely new or worsening symptoms. Med/Other Pt SpecificInfo: Prescription(s) given Scripts Prednisone (Prednisone) 20 Mg Tab 20 MG PO BID for 5 Days, #10 TAB 0 Refills Prov: Nohemy Rehman MD 07/31/17 Levofloxacin (Levaquin) 500 Mg Tablet 500 MG PO DAILY for Infection for 9 Days, #9 TAB 0 Refills Prov: Nohemy Rehman MD 07/31/17 Disposition: 01 DISCHARGE HOME Condition: Stable Robert Mccormick Jul 31, 2017 12:18
[2017-07-31] MEDS: RESP: ALBUTEROL 2.5 MG/IPRATROPIUM 0.5 MG NEB (SCH) INH ×3 (12:24→12:51)
[2017-07-31] MEDS ORDERED: methylPREDNISolone SOD SUCC 125 MG/2 ML VIAL IV PUSH ONE (12:30)
--- NOTE | 2017-07-31 12:59 | PD ---
Physical Exam Date Seen by Provider: Jul 31, 2017 Narrative This patient presents with dyspnea. He has a history of COPD. Data Data Last Documented VS Vital Signs Date Time Temp Pulse Resp B/P (MAP) Pulse Ox O2 Delivery O2 Flow Rate FiO2 07/31/17 11:52 97.9 88 24 145/70 (95) 91 Orders Orders Complete Blood Count With Diff (07/31/17 11:55) Basic Metabolic Panel (Bmp) (07/31/17 11:55) B-Type Natriuretic Peptide (07/31/17 11:55) Act Partial Throm Time (Ptt) (07/31/17 11:55) Prothrombin Time / Inr (Pt) (07/31/17 11:55) Magnesium (Mg) (07/31/17 11:55) Electrocardiogram (07/31/17 11:55) Chest, Pa & Lat (07/31/17 11:55) Albuterol-Ipratropium Neb (Duoneb Neb) (07/31/17 12:30) Methylprednisolone So Succ Inj (Solumedr (07/31/17 12:30) MDM Supervised Visit with RACHEL: Yes Narrative Course I, Dr. Rehman, have reviewed the advance practice practitioner's documentation and am in agreement, met with the patient face to face, made the diagnosis, and the medical decision making was done by me. *My assessment and Findings: Patient is awake and alert and in no acute distress. He is able to speak to me without any respiratory distress. His lungs have diminished breath sounds with diffuse wheezing. Please see Robert Mccormick PA-C's note for results of laboratory and radiographic evaluation, ED course, final diagnosis and disposition Nohemy Rehman MD Jul 31, 2017 12:59
[2017-07-31 13:05] LABS: AUTOMATED NEUTROPHIL # 5.2 TH/MM3 (1.8-7.7); BASOPHIL # 0.1 TH/MM3 (0-0.2); BASOPHIL % 0.6 % (0.0-2.0); EOSINOPHIL # 0.3 TH/MM3 (0-0.4); EOSINOPHIL % 3.1 % (0.0-4.0); HEMATOCRIT 42.3 % (39.0-51.0); HEMOGLOBIN 14.7 GM/DL (13.0-17.0); LYMPH % 27.7 % (9.0-44.0); LYMPHOCYTE # 2.3 TH/MM3 (1.0-4.8); MEAN CORPUSCULAR HEMOGLOBIN 32.3 PG (27.0-34.0); MEAN CORPUSCULAR HGB CONC 34.7 % (32.0-36.0); MEAN PLATELET VOLUME 7.6 FL (7.0-11.0); MONO % 7.3 % (0.0-8.0); MONOCYTE # 0.6 TH/MM3 (0-0.9); NEUT % 61.3 % (16.0-70.0); PLATELET COUNT 261 TH/MM3 (150-450); RED BLOOD COUNT 4.55 MIL/MM3 (4.50-5.90); RED CELL DISTRIBUTION WIDTH 13.3 % (11.6-17.2); WHITE BLOOD COUNT 8.5 TH/MM3 (4.0-11.0)
[2017-07-31 13:13] LABS: PROTHROMBIN TIME - PATIENT 10.2 SEC (9.8-11.6)
[2017-07-31 13:30] VITALS: BP 110/63; PULSE 93; RESP 20; O2SAT 89
[2017-07-31 13:35] LABS: BICARBONATE 30.7 MEQ/L (21.0-32.0); CREATININE 0.66 MG/DL (0.60-1.30); MAGNESIUM 2.1 MG/DL (1.5-2.5)
[2017-07-31] MEDS ORDERED: LEVA500T33 PO (13:58)
[2017-07-31] MEDS ORDERED: PRED20 PO (13:58)
[2017-07-31] MEDS ORDERED: LEVOFLOXACIN 500 MG PREMIX INJ 100 ML IV ONE (14:00)
--- NOTE | 2017-07-31 14:56 | EKG ---
Date Performed: 07/31/2017 Time Performed: 12:19:21 PTAGE: 76 years EKG: Sinus rhythm MARKED LEFT AXIS DEVIATION RIGHT BUNDLE BRANCH BLOCK SEPTAL MYOCARDIAL INFARCTION ABNORMAL ECG Didier red to prior electrocardiogram, Sinus rhythm has replaced atrial flutter. DOCTOR: Kirk Bejarano Interpretating Date/Time 07/31/2017 14:55:57
[2017-07-31 16:50] VITALS: BP 117/68
== END 2017-07-31 16:51 | disposition home or self-care (01) ==
LOC: NEPC 11:48
DX: J44.1 Chronic obstructive pulmonary disease with (acute) exacerbation (principal); R94.31 Abnormal electrocardiogram [ECG] [EKG]
CPT/HCPCS: 71046; 80048; 83735; 83880; 85025; 85610; 85730; 93005; 94640; 94664; 96365; 96375; 99285; J1956; J2930